=== PATIENT | female | born 1965 | race Caucasian/White ===

== ENCOUNTER 2018-11-11 10:06 | Outpatient (CLI) | payer BC | END 2018-11-11 10:07 | disposition home or self-care (01) | LOC: BICMAMMO 10:06 | PROVIDERS: ATTEND Obstetrics & Gynecology | DX: Z12.31 Encounter for screening mammogram for malignant neoplasm of breast (principal); R92.1 Mammographic calcification found on diagnostic imaging of breast; Z98.82 Breast implant status | CPT/HCPCS: 77063; 77067 ==

== ENCOUNTER 2019-11-17 14:11 | Outpatient (CLI) | payer BC ==
--- NOTE | 2019-11-17 15:25 | MMO ---
Bilateral MAMMO Bilat Screen [facility]. CLINICAL HISTORY: Patient is 54 years old and is seen for screening. The patient has no family history of breast cancer. The patient has a history of Skin cancer. The patient has a history of bilateral mastopexy in ?, bilateral Implants in 1990, bilateral Explantation in and bilateral Implants in ?. VIEWS: The views performed were: bilateral craniocaudal; bilateral craniocaudal with tomosynthesis; bilateral mediolateral oblique; bilateral mediolateral oblique with tomosynthesis; and bilateral Implant displaced with tomosynthesis. FILMS COMPARED: The present examination has been compared to prior imaging studies performed at [facility] on 08/13/2017 and 11/11/2018, and at [facility] on 06/20/2005 and 10/02/2006. This study has been interpreted with the assistance of computer-aided detection. MAMMOGRAM FINDINGS: There are scattered fibroglandular densities. Finding 1: There are stable benign appearing calcifications seen in both breasts. Finding 2: Normal implants are present. There are no suspicious masses, suspicious calcifications, or new areas of architectural distortion. IMPRESSION: THERE IS NO MAMMOGRAPHIC EVIDENCE OF MALIGNANCY. A ROUTINE FOLLOW-UP MAMMOGRAM IN 1 YEAR IS RECOMMENDED. THE RESULTS OF THIS EXAM WERE SENT TO THE PATIENT. ACR BI-RADS Category 2 - Benign finding MAMMOGRAPHY NOTE: 1. A negative mammogram report should not delay a biopsy if a dominant of clinically suspicious mass is present. 2. Approximately 10% to 15% of breast cancers are not detected by mammography. 3. Adenosis and dense breasts may obscure an underlying neoplasm. Reported by: JESIKA OLIVEIRA MD Electonically Signed: [id number]
== END 2019-11-17 14:12 | disposition home or self-care (01) ==
LOC: BICMAMMO 14:11
DX: Z12.31 Encounter for screening mammogram for malignant neoplasm of breast (principal); Z98.82 Breast implant status; Z85.820 Personal history of malignant melanoma of skin
CPT/HCPCS: 77063; 77067